=== PATIENT | male | born 1960 | race African-American/Black ===

== ENCOUNTER 2019-10-26 15:55 | Emergency (ER) | payer OTHER ==
[~2019-10-26] VITALS: Ht 175.3 cm; Wt 64.9 kg
--- NOTE | 2019-10-26 16:04 | NUR ---
PT [facility]. AAOX4. AMBULATORY WITH STEADY GAIT. C/O SOB FOR A COUPLE HOURS. UPON ASSESSMENT RR EVEN AND UNLABORED. SAT 100 ON RA. NO ACUTE DISTRESS NOTED. VSS. AWAITING MD FOR [facility]. WILL CONTINUE TO MONITOR.
--- NOTE | 2019-10-26 16:19 | NUR ---
LABS COLLECTED AND SENT
--- NOTE | 2019-10-26 16:19 | NUR ---
EMT AT BEDSIDE FOR ECG
[2019-10-26 16:26] LABS: BASOPHILS % (AUTO) 0.5 % (0.0-2.0); EOSINOPHILS % (AUTO) 1.1 % (0.0-6.0); HEMATOCRIT 34 % (39-51); HEMOGLOBIN 11.2 g/dL (13.5-17.5); LYMPHOCYTES # (AUTO) 1.1 /CMM (0.8-4.8); LYMPHOCYTES % (AUTO) 28.5 % (20.0-44.0); MEAN CORPUSCULAR HGB CONC 33 g/dl (31.0-36.0); MEAN CORPUSCULAR VOLUME 85 fL (80-96); MONOCYTES # (AUTO) 0.2 /CMM (0.1-1.30); MONOCYTES % (AUTO) 3.8 % (2.0-12.0); NEUTROPHILS # (AUTO) 2.6 /CMM (1.8-8.9); NEUTROPHILS % (AUTO) 66.1 % (43.0-81.0); PLATELET COUNT (AUTO) 224 /CMM (150-450); RED BLOOD CELL COUNT(AUTO) 4.02 MIL/uL (4.5-6.0); WHITE BLOOD COUNT (AUTO) 3.9 K/uL (4.3-11.0)
[2019-10-26 16:36] LABS: CALCIUM, SERUM 9.5 mg/dL (8.5-10.1); CARBON DIOXIDE 28 mmol/L (21-32); CHLORIDE 100 mmol/L (98-107); CREATININE 1.5 mg/dL (0.6-1.3); GLUCOSE 111 mg/dL (74-106); SODIUM SERUM 135 mmol/L (136-145); UREA NITROGEN, BLOOD 30 mg/dL (7-18)
[2019-10-26 16:52] LABS: ALANINE AMINOTRANSFERASE 14 U/L (12-78); ALKALINE PHOSPHATASE 75 U/L (46-116); ASPARTATE AMINOTRANSFERASE 14 U/L (15-37); B-TYPE NATRIURETIC PEPTIDE 17 PG/ML (0-125); BILIRUBIN,DIRECT 0.1 mg/dL (0.0-0.2); BILIRUBIN,TOTAL 0.6 mg/dL (0.2-1.0); TOTAL PROTEIN, SERUM 7.6 g/dL (6.4-8.2)
--- NOTE | 2019-10-26 17:16 | NUR ---
PER SISTER PATIENT TAKES AMLODIPINE 5MG BID
--- NOTE | 2019-10-26 17:26 | NUR ---
CALLED [facility] FOR CLINICALS AND PRESENTING PT.
--- NOTE | 2019-10-26 17:27 | NUR ---
[facility] DOCTOR WILL CALL BACK.
[2019-10-26] MEDS ORDERED: ALBUTEROL FS 2.5 MG/3 ML VIAL.NEB NEB ONE (18:00)
--- NOTE | 2019-10-26 18:12 | NUR ---
RESPIRATORY AT [facility]
[2019-10-26] MEDS ORDERED: ALBUTEROL FS 2.5 MG/3 ML VIAL.NEB ONE (18:13)
--- NOTE | 2019-10-26 18:32 | NUR ---
[facility] CALL[facility] BACK WITH TRANSFER INFORMATION. PT WILL BE TRANSFERRED TO [facility]. ACCEPTING IS DR. [facility] WAS ORDERED AND ETA IS [phone]. NUMBER FOR REPORT [phone].
--- NOTE | 2019-10-26 18:43 | NUR ---
PATIENT RESTING. VSS.
[2019-10-26] MEDS ORDERED: hydrALAZINE HCL IV 20 MG VIAL ONE (18:55)
[2019-10-26] MEDS ORDERED: hydrALAZINE HCL IV 20 MG VIAL IV ONE (19:00)
--- NOTE | 2019-10-26 19:07 | NUR ---
BP 189/110 HR 101 GIVEN 10 OF HYDRALIZENE
--- NOTE | 2019-10-26 19:30 | NUR ---
PT TRANSFERED TO [facility].
--- NOTE | 2019-10-26 19:38 | NUR ---
REPORT GIVEN TO GEORGE GREEN FROM [facility].
[2019-10-26 19:50] VITALS: BP 175/96
== END 2019-10-26 20:02 | disposition short-term general hospital (02) ==
LOC: ER 16:05
DX: R06.02 Shortness of breath (principal); R09.89 Other specified symptoms and signs involving the circulatory and respiratory systems; I10 Essential (primary) hypertension; Z85.07 Personal history of malignant neoplasm of pancreas
CPT/HCPCS: 36415; 71045; 80048; 80076; 83605; 83880; 84484; 85025; 93005; 94640; 96374; 99285; J0360